=== PATIENT | female | born 1950 | race African-American/Black ===

== ENCOUNTER 2018-04-22 10:19 | Outpatient (CLI) | payer MEDICARE, BC ==
--- NOTE | 2018-04-22 11:16 | MMO ---
Bilateral MAMMO Bilat Screen [facility]. CLINICAL HISTORY: Patient is 68 years old and is seen for screening. The patient has no family history of breast cancer. The patient has no personal history of cancer. VIEWS: The views performed were: bilateral craniocaudal with tomosynthesis; bilateral mediolateral oblique with tomosynthesis; and bilateral exaggerated craniocaudal. FILMS COMPARED: The present examination has been compared to prior imaging studies performed at [facility] on 06/06/2008, 12/07/2008 and 07/10/2016. MAMMOGRAM FINDINGS: The breasts are heterogeneously dense, which could obscure a lesion on mammography. Finding 1: There are vascular calcifications seen in both breasts. Finding 2: There are benign appearing calcifications seen in both breasts. There are no suspicious masses, calcifications or areas of architectural distortion. IMPRESSION: ALL ABOVE FINDINGS ARE BENIGN. A ROUTINE FOLLOW-UP MAMMOGRAM IN 1 YEAR IS RECOMMENDED. THE RESULTS OF THIS EXAM WERE SENT TO THE PATIENT. ACR BI-RADS Category 2 - Benign finding MAMMOGRAPHY NOTE: 1. A negative mammogram report should not delay a biopsy if a dominant of clinically suspicious mass is present. 2. Approximately 10% to 15% of breast cancers are not detected by mammography. 3. Adenosis and dense breasts may obscure an underlying neoplasm.
== END 2018-04-22 10:20 | disposition home or self-care (01) ==
LOC: BICMAMMO 10:19
PROVIDERS: ATTEND Internal Medicine
DX: Z12.31 Encounter for screening mammogram for malignant neoplasm of breast (principal)
CPT/HCPCS: 77063; 77067

== ENCOUNTER 2018-10-03 15:12 | Emergency (ER) | payer BC, MEDICARE, OTHER, SELFPAY ==
[2018-10-03 15:46] LABS: #Eosinphils 0.1 thou/uL (0.0-0.7); #Lymphocytes 1.7 thou/uL (1.20-3.40); #Monocytes 0.4 thou/uL (0.11-0.59); #Neutrophils 1.8 thou/uL (1.40-6.50); %Basophils 0.9 % (0.0-1.0); %Eosinophils 1.7 % (0.0-10.0); %Lymphocytes 41.4 % (21.0-51.0); %Monocytes 10.7 % (0.0-10.0); %Neutrophils 45.3 % (42.0-75.0); Hemoglobin 12.5 g/dL (12.0-16.0); Mean Corpuscular HGB CONC 32.2 g/dL (32.0-36.0); Mean Corpuscular Hemoglobin 27.9 pg (27.0-31.0); Mean Corpuscular Volume 86.7 fL (78.0-98.0); Mean Platelet Volume 7.6 fL (7.4-10.4); Platelet Count 150 thou/uL (130-400); RBC Distribution Width 12.7 % (11.5-14.5); Red Blood Cell (RBC) Count 4.46 mill/uL (4.20-5.40)
[2018-10-03 16:02] LABS: ALT (SGPT) 27 U/L (8-55); AST (SGOT) 28 U/L (5-34); Albumin 3.9 g/dL (3.4-4.8); Alkaline Phosphatase 42 U/L (40-150); Anion Gap 12 mmol/L (10-20); BUN (Urea Nitrogen) 12 mg/dL (9.8-20.1); Bilirubin, Total 0.4 mg/dL (0.2-1.2); Calc. Creatinine Clearance 0 mL/min (70-130); Calcium 9.2 mg/dL (7.8-10.44); Carbon Dioxide 26 mmol/L (23-31); Chloride 107 mmol/L (98-107); Estimated GFR-MDRD 83; Globulin 2.4 g/dL (2.4-3.5); Glucose 80 mg/dL (80-115); Potassium 3.5 mmol/L (3.5-5.1); Protein, Total 6.3 g/dL (6.0-8.3); Sodium 141 mmol/L (136-145)
--- NOTE | 2018-10-03 16:56 | RAD ---
RADIOGRAPH CHEST 1 VIEW: DATE: 10/03/2018 HISTORY: Generalized weakness and hyperglycemia in 68-year-old female FINDINGS: The thoracic aorta is tortuous and ectatic. There is no evidence of airspace density, pulmonary edema , cardiomegaly, or pneumothorax. The lateral costophrenic angles are not effaced. IMPRESSION: 1) No acute cardiopulmonary findings. 2) ectasia of thoracic aorta.
[2018-10-03 17:04] LABS: Magnesium 1.9 mg/dL (1.6-2.6)
[2018-10-03 17:46] LABS: Bacteria/HPF 1+ HPF (None Seen); Bilirubin Negative (Negative); Blood, Urine 2+ (Negative); Clarity Clear (Clear); Glucose, Urine (Dipstick) Normal (Negative); Leukocyte Negative Leu/uL (Negative); Nitrite Negative (Negative); Protein, Urine (Dipstick) Negative (Neg-Trace); Squamous Epithelial 0-3 HPF (0-3); Urobilinogen Normal mg/dL (Less than 2); WBC/HPF 0-3 HPF (0-3)
--- NOTE | 2018-10-03 19:25 | CT ---
CT BRAIN WITHOUT CONTRAST: Date: 10/03/18 HISTORY: Generalized weakness. FINDINGS: Comparison made with exam of 04/16/16. No evidence of acute infarct, hemorrhage, midline shift, or abnormal extra-axial fluid collections ar e seen. The ventricular size is stable and the basilar cisterns are patent. The bony calvarium is int act. The visualized paranasal sinuses and mastoid air cells are well aerated. Mild cerebral and cereb ellum volume loss is again seen. IMPRESSION: No CT evidence of acute intracranial process. POS: [facility]
== END 2018-10-03 19:45 | disposition home or self-care (01) ==
LOC: ERS 15:12
DX: R53.83 Other fatigue (principal); R31.9 Hematuria, unspecified; E05.90 Thyrotoxicosis, unspecified without thyrotoxic crisis or storm; I49.9 Cardiac arrhythmia, unspecified; E78.5 Hyperlipidemia, unspecified; I10 Essential (primary) hypertension
CPT/HCPCS: 36415; 70450; 71045; 80053; 81003; 81015; 82550; 83690; 83735; 83880; 84443; 84484; 85025; 93005

== ENCOUNTER 2018-10-26 11:54 | Outpatient (CLI) | payer MEDICARE ==
--- NOTE | 2018-10-26 12:49 | ULT ---
US Renal Bilateral STANDARD History: Hematuria. R 13.9 Comparison: None. Findings: Real-time grayscale and color evaluation of the kidneys and urinary bladder was performed. Right kidney measures 9.3 x 3.7 x 5.60 m in the left knee measures 10 x 5.1 x 5 cm. Prevoid urinary b ladder volume is 26 mL. No renal mass, hydronephrosis, or abnormal calcifications. Impression: Normal renal ultrasound.
== END 2018-10-26 11:55 | disposition home or self-care (01) ==
LOC: ULT 11:54
PROVIDERS: ATTEND Internal Medicine
DX: R31.9 Hematuria, unspecified (principal)
CPT/HCPCS: 76770

== ENCOUNTER 2020-03-29 11:42 | Outpatient (CLI) | payer MEDICARE | END 2020-03-29 11:43 | disposition home or self-care (01) | LOC: BICMAMMO 11:42 | PROVIDERS: ATTEND Internal Medicine | DX: Z12.31 Encounter for screening mammogram for malignant neoplasm of breast (principal) | CPT/HCPCS: 77063; 77067 ==

== ENCOUNTER 2021-04-05 09:39 | Outpatient (CLI) | payer MEDICARE | END 2021-04-05 09:40 | disposition home or self-care (01) | LOC: BICMAMMO 09:39 | PROVIDERS: ATTEND Internal Medicine | DX: Z12.31 Encounter for screening mammogram for malignant neoplasm of breast (principal) | CPT/HCPCS: 77063; 77067 ==

== ENCOUNTER 2021-07-18 14:01 | Emergency (ER) | payer MEDICARE | END 2021-07-18 15:55 | disposition home or self-care (01) | LOC: ERS 14:01 | DX: L03.011 Cellulitis of right finger (principal); E78.5 Hyperlipidemia, unspecified; I10 Essential (primary) hypertension ==

== ENCOUNTER 2022-06-02 10:50 | Outpatient (CLI) | payer MEDICARE | END 2022-06-02 10:51 | disposition home or self-care (01) | LOC: BICMAMMO 10:50 | PROVIDERS: ATTEND Internal Medicine | DX: Z12.31 Encounter for screening mammogram for malignant neoplasm of breast (principal) | CPT/HCPCS: 77063; 77067 ==

== ENCOUNTER 2023-02-17 16:02 | Inpatient (IN) | payer MEDICARE ==
[~2023-02-17 16:02] MED LIST: Iopamidol-370 76% 500 ML MDV (1 ML CHARGE) ONE
[2023-02-17] MEDS ORDERED: Ondansetron PF 4 MG/2 ML Vial ONE (16:28)
[2023-02-17 16:35] LABS: #Monocytes 0.1 thou/uL (0.11-0.59); #Neutrophils 3.9 thou/uL (1.40-6.50); %Basophils 0.4 % (0.0-1.0); %Neutrophils 83.4 % (42.0-75.0); Hemoglobin 12.7 g/dL (12.0-16.0); Mean Corpuscular Hemoglobin 26.7 pg (27.0-31.0); Mean Corpuscular Volume 86.3 fl (78.0-98.0); Mean Platelet Volume 9.6 fL (7.4-10.4); Platelet Count 175 10x3/uL (130-400); RBC Distribution Width 14.5 % (11.5-14.5); Red Blood Cell (RBC) Count 4.75 mill/uL (4.20-5.40); White Blood Cell (WBC) Count 4.6 10x3/uL (4.8-10.8)
[2023-02-17] MEDS ORDERED: Meclizine HCl 25 MG TAB ONE (16:50)
[2023-02-17 16:56] LABS: ALT (SGPT) 9 U/L (8-55); AST (SGOT) 19 U/L (5-34); Albumin 4.1 g/dL (3.4-4.8); Alkaline Phosphatase 46 U/L (40-110); Anion Gap 13 mmol/L (10-20); BUN (Urea Nitrogen) 16 mg/dL (9.8-20.1); Bilirubin, Total 0.5 mg/dL (0.2-1.2); Calc. Creatinine Clearance 0 mL/min (70-130); Calcium 8.9 mg/dL (7.8-10.44); Carbon Dioxide 26 mmol/L (23-31); Chloride 105 mmol/L (98-107); Estimated GFR 83; Glucose 148 mg/dL (80-115); Potassium 3.8 mmol/L (3.5-5.1); Protein, Total 7.1 g/dL (5.8-8.1); Sodium 140 mmol/L (136-145)
[2023-02-17 17:00] LABS: Troponin I Less than 0.010 ng/mL (< 0.028)
[2023-02-17] MEDS ORDERED: Aspirin Chewable 81 MG TAB ONE (18:24)
[2023-02-17] MEDS ORDERED: Ondansetron ODT 4 MG TAB PO PRN (18:54)
[2023-02-17] MEDS ORDERED: hydrALAZINE 20 MG/ML VIAL SLOW IVP PRN (18:54)
[2023-02-17] MEDS ORDERED: Acetaminophen 325 MG TAB PO PRN (18:54)
[2023-02-17] MEDS ORDERED: Ondansetron PF 4 MG/2 ML Vial IVP PRN (18:54)
[2023-02-17 19:42] LABS: Magnesium 1.9 mg/dL (1.6-2.6)
[2023-02-17] MEDS ORDERED: Meclizine HCl 25 MG TAB PO PRN (21:38)
[2023-02-17] MEDS ORDERED: Atorvastatin Calcium 40 MG TAB ONE (21:47)
[2023-02-17] MEDS: Atorvastatin Calcium 40 MG TAB PO SCH (21:50)
[2023-02-18] MEDS ORDERED: Aspirin Chewable 81 MG TAB ONE (08:26)
[2023-02-18] MEDS: Aspirin 81 mg Enteric Coated Tablet PO SCH (08:35)
[2023-02-18 14:33] LABS: #Eosinphils 0.1 thou/uL (0.0-0.7); #Monocytes 0.5 thou/uL (0.11-0.59); %Basophils 0.5 % (0.0-1.0); %Eosinophils 1.2 % (0.0-10.0); %Lymphocytes 36.6 % (21.0-51.0); %Monocytes 8.5 % (0.0-10.0); %Neutrophils 52.8 % (42.0-75.0); Hematocrit 39.4 % (36.0-47.0); Hemoglobin 12.1 g/dL (12.0-16.0); Mean Corpuscular HGB CONC 30.7 g/dL (32.0-36.0); Mean Corpuscular Hemoglobin 27.1 pg (27.0-31.0); Mean Corpuscular Volume 88.1 fl (78.0-98.0); Mean Platelet Volume 9.7 fL (7.4-10.4); Platelet Count 195 10x3/uL (130-400); RBC Distribution Width 14.8 % (11.5-14.5); Red Blood Cell (RBC) Count 4.47 mill/uL (4.20-5.40); White Blood Cell (WBC) Count 5.7 10x3/uL (4.8-10.8)
[2023-02-18 14:57] LABS: Hemoglobin A1c 5.3 % (4.0-6.0)
[2023-02-18 15:04] LABS: Anion Gap 12 mmol/L (10-20); BUN (Urea Nitrogen) 17 mg/dL (9.8-20.1); Calc. Creatinine Clearance 0 mL/min (70-130); Calcium 8.7 mg/dL (7.8-10.44); Carbon Dioxide 26 mmol/L (23-31); Cardiac Risk 3.4 (Less than 4.5); Chloride 107 mmol/L (98-107); Cholesterol 216 mg/dl (< 200 Desired); Estimated GFR 91; Glucose 89 mg/dL (80-115); HDL Cholesterol 64 mg/dL (>60 Neg Risk); LDL Cholesterol, Calculated 138 mg/dL; Potassium 3.8 mmol/L (3.5-5.1); Sodium 141 mmol/L (136-145); Triglycerides 71 mg/dL (Less than 150)
[2023-02-18] MEDS: Atorvastatin Calcium 40 MG TAB PO SCH (21:42)
[2023-02-19 04:43] LABS: #Eosinphils 0.1 thou/uL (0.0-0.7); #Monocytes 0.5 thou/uL (0.11-0.59); #Neutrophils 2.1 thou/uL (1.40-6.50); %Basophils 0.8 % (0.0-1.0); %Eosinophils 1.6 % (0.0-10.0); %Monocytes 10.2 % (0.0-10.0); %Neutrophils 40.4 % (42.0-75.0); Hematocrit 37.4 % (36.0-47.0); Hemoglobin 11.7 g/dL (12.0-16.0); Mean Corpuscular HGB CONC 31.3 g/dL (32.0-36.0); Mean Corpuscular Hemoglobin 27.1 pg (27.0-31.0); Mean Corpuscular Volume 86.8 fl (78.0-98.0); Mean Platelet Volume 10.4 fL (7.4-10.4); Platelet Count 188 10x3/uL (130-400); RBC Distribution Width 14.7 % (11.5-14.5); Red Blood Cell (RBC) Count 4.31 mill/uL (4.20-5.40); White Blood Cell (WBC) Count 5.1 10x3/uL (4.8-10.8)
[2023-02-19 05:13] LABS: Anion Gap 11 mmol/L (10-20); BUN (Urea Nitrogen) 19 mg/dL (9.8-20.1); Calc. Creatinine Clearance 0 mL/min (70-130); Calcium 8.5 mg/dL (7.8-10.44); Carbon Dioxide 29 mmol/L (23-31); Chloride 108 mmol/L (98-107); Estimated GFR 79; Glucose 83 mg/dL (80-115); Potassium 4.1 mmol/L (3.5-5.1); Sodium 144 mmol/L (136-145)
[2023-02-19] MEDS: Aspirin 81 mg Enteric Coated Tablet PO SCH (09:50)
[2023-02-19 10:45] VITALS: BP 147/84; TEMP 98.2
== END 2023-02-19 10:46 | disposition home or self-care (01) | DRG 149 ==
LOC: ERS 16:02 → ERHOLD 18:22 → 2NO 02-18 15:22 → OBSVTOIN 02-19 09:45
PROVIDERS: ADMIT Student in an Organized Health Care Education/Training Program; ATTEND Internal Medicine
DX: H81.399 Other peripheral vertigo, unspecified ear (principal); I10 Essential (primary) hypertension; R53.1 Weakness; H55.00 Unspecified nystagmus; R63.4 Abnormal weight loss; E78.5 Hyperlipidemia, unspecified; Z79.82 Long term (current) use of aspirin; Z79.899 Other long term (current) drug therapy; Z90.49 Acquired absence of other specified parts of digestive tract; Z90.710 Acquired absence of both cervix and uterus; Z98.890 Other specified postprocedural states
CPT/HCPCS: 36415; 70450; 70496; 70498; 70551; 71045; 80048; 80053; 80061; 83036; 83735; 84443; 84484; 85025; 93005; J2405